=== PATIENT | male | born 1935 | race Caucasian/White ===

== ENCOUNTER 2018-02-16 17:40 | Inpatient (IN) ==
[2018-02-16] MEDS ORDERED: methylPREDNISolone SOD SUCC 125 MG/2 ML VIAL IV ONE (17:49)
[2018-02-16] MEDS ORDERED: IPRATROPIUM/ALBUTEROL 3 ML AMPUL.NEB NEB ONE (17:52)
--- NOTE | 2018-02-16 18:38 | XRay Report ---
CLINICAL INFORMATION: dyspnea COMPARISON: 12/03/2017 FINDINGS: Heart size, mediastinum and pulmonary vessels are normal. There is minor bibasilar atelectasis or infiltrate. No effusion. IMPRESSION: Minor bibasilar atelectasis or infiltrate. Interpreted and Authenticated by: Medardo Bell 02/16/18
[2018-02-16 18:44] LABS: Basophils # (Auto) 0 K/mcL (0.0-0.3); Basophils % (Auto) 0 % (0.0-2.0); Eosinophils # (Auto) 0.3 K/mcL (0.0-0.7); Eosinophils % (Auto) 2.3 % (0.0-7.0); Granulocytes % (Auto) 79.5 % (38.0-78.0); Lymphocytes # (Auto) 1.7 K/mcL (1.5-4.8); Lymphocytes % (Auto) 12.2 % (15.5-49.0); Mean Corpuscular HGB Conc 33.8 g/dL (31.0-36.0); Mean Corpuscular Hemoglobin 30.1 pg (26.0-34.0); Monocytes # (Auto) 0.8 K/mcL (0.1-0.9); Platelet Count 246 K/mcL (140-440); RBC 5.03 M/mcL (4.50-5.90); Red Cell Distribution Width 13.4 % (11.5-14.5)
[2018-02-16] MEDS ORDERED: 0.9 % SODIUM CHLORIDE 1,000 ML IV ONE (18:49)
[2018-02-16] MEDS ORDERED: LEVOFLOXACIN 500 MG/100 ML BAG IV ONE (18:51)
--- NOTE | 2018-02-16 18:54 | Emergency Department Note ---
SOB HPI - General Chief Complaint: Shortness of Breath/Dyspnea Stated Complaint: SOB Time Seen by Provider: 02/16/18 18:25 Source: patient Mode of arrival: ambulatory Limitations: no limitations - History of Present Illness 82-year-old male presents with shortness of breath. States it started a few weeks ago but much worse over the last few days. No unknown fever, positive chills last few days. No nausea, vomiting, or diarrhea. He became much more short of breath tonight and arrived with oxygen saturations in the 70s on room air. He does not use any home oxygen at home but does have a history of COPD. He has had a cough for the last few days. Nonproductive. Increased shortness of breath with any exertion. No sore throat or ear pain. No other cold symptoms. No pedal edema. Associated symptoms: Denies: chest pain, pain with inspiration - Related Data Home Medications Medication Instructions Recorded Confirmed Nitroglycerin [Nitrostat] 0.4 mg SL Q5M PRN 12/03/17 12/03/17 Allergies Allergy/AdvReac Type Severity Reaction Status Date / Time No Known Drug Allergies Allergy Verified 02/16/18 17:43 Review of Systems All systems ED: reviewed and negative except as stated. Past Medical History - Past Medical History Medical history: Reports: COPD, coronary artery disease (History of cardiac stent), DM, hypertension, other (aaa) Surgical history ED: Reports: angioplasty/stent, appendectomy, orthopedic, other (neck), other (turp, cardiac stents, neck sx) - Social History smoking status: Former smoker (quit in 2001) Alcohol use: Reports: None (quit 2001) Drug use: Reports: none Physical Exam Limitations: no limitations General appearance: alert, in no apparent distress Head: atraumatic, normocephalic, normal inspection Eye: Present: normal appearance. Absent: conjunctival injection ENT: normal exam, normal oropharynx, mucous membranes moist, TM's normal bilaterally, normal external ear exam Neck: Present: normal inspection, trachea midline. Absent: tenderness, lymphadenopathy Chest: Present: symmetric chest wall rise Respiratory: Present: respiratory distress (Tachypnea and labored breathing on arrival with oxygen saturations in the 70s on room air), wheezes (Expiratory wheezes to bases bilaterally and diminished lung sounds throughout on arrival), accessory muscle use (Moderate accessory muscle use on arrival). Absent: stridor Cardiovascular: Present: regular rate, normal heart sounds Extremities: Present: normal inspection, normal capillary refill. Absent: pedal edema Neurological: Present: alert, oriented X3 Psychiatric: Present: normal affect, normal mood Skin: Present: warm, dry, intact, normal color. Absent: rash, cyanosis, diaphoresis, erythema Course Course Narrative: @2014 Dr. Mak, hospitalist accepted pt. Vital Signs Temperature 98.0 F 02/16/18 17:41 Temperature 100.7 F H 02/16/18 18:48 Pulse Rate 105 H 02/16/18 19:48 Respiratory Rate 19 02/16/18 19:48 Blood Pressure 122/75 02/16/18 19:46 Pulse Oximetry (%) 95 02/16/18 19:48 Shortness of Breath/Dyspnea - Lab Data Lab results reviewed: Yes I reviewed the patient's lab results. Result diagrams: 02/16/18 18:04 02/16/18 18:04 Lab Results 02/16/18 02/16/18 02/16/18 Range/Units 18:04 18:04 18:04 WBC 13.9 H (4.5-11.0) K/mcL RBC 5.03 (4.50-5.90) M/mcL Hgb 15.1 (13.5-16.5) g/dL Hct 44.8 (41.0-55.0) % MCV 89.0 (80.0-100.0) fL MCH 30.1 (26.0-34.0) pg MCHC 33.8 (31.0-36.0) g/dL RDW 13.4 (11.5-14.5) % Plt Count 246 (140-440) K/mcL MPV 7.4 (7.4-10.4) fL Gran % 79.5 H (38.0-78.0) % Lymph % (Auto) 12.2 L (15.5-49.0) % [place] % (Auto) 6.0 (1.0-12.0) % Eos % (Auto) 2.3 (0.0-7.0) % Baso % (Auto) 0 (0.0-2.0) % Gran # 11.1 H (1.8-8.0) K/mcL Lymph # (Auto) 1.7 (1.5-4.8) K/mcL [place] # (Auto) 0.8 (0.1-0.9) K/mcL Eos # (Auto) 0.3 (0.0-0.7) K/mcL Baso # (Auto) 0 (0.0-0.3) K/mcL VBG Lactic Acid 2.8 H (0.5-2.0) mmol/L Sodium 132 L (133-145) mmol/L Potassium 4.1 (3.3-5.1) mmol/L Chloride 93 L (96-108) mmol/L Carbon Dioxide 22 (22-30) mmol/L Anion Gap 17.0 H (8-16) BUN 19 (8-23) mg/dl Creatinine 1.0 (0.7-1.2) mg/dl GFR Calculation 71 Glucose 234 H (70-105) mg/dL Calcium 9.6 (8.6-10.4) mg/dl Total Bilirubin 0.2 (0.0-1.0) mg/dL AST 21 (0-37) U/l ALT 19 (0-40) U/l Alkaline Phosphatase 98 (39-117) U/L Troponin T (0-0.03) ng/ml NT-Pro-B Natriuret Pep 108.2 (0-450) pg/ml Total Protein 7.4 (5.9-8.4) gm/dL Albumin 4.3 (3.2-5.2) gm/dL Globulin 3.1 (2.2-3.7) gm/dL Albumin/Globulin Ratio 1.4 (1.0-2.3) 02/16/18 Range/Units 18:04 WBC (4.5-11.0) K/mcL RBC (4.50-5.90) M/mcL Hgb (13.5-16.5) g/dL Hct (41.0-55.0) % MCV (80.0-100.0) fL MCH (26.0-34.0) pg MCHC (31.0-36.0) g/dL RDW (11.5-14.5) % Plt Count (140-440) K/mcL MPV (7.4-10.4) fL Gran % (38.0-78.0) % Lymph % (Auto) (15.5-49.0) % [place] % (Auto) (1.0-12.0) % Eos % (Auto) (0.0-7.0) % Baso % (Auto) (0.0-2.0) % Gran # (1.8-8.0) K/mcL Lymph # (Auto) (1.5-4.8) K/mcL [place] # (Auto) (0.1-0.9) K/mcL Eos # (Auto) (0.0-0.7) K/mcL Baso # (Auto) (0.0-0.3) K/mcL VBG Lactic Acid (0.5-2.0) mmol/L Sodium (133-145) mmol/L Potassium (3.3-5.1) mmol/L Chloride (96-108) mmol/L Carbon Dioxide (22-30) mmol/L Anion Gap (8-16) BUN (8-23) mg/dl Creatinine (0.7-1.2) mg/dl GFR Calculation Glucose (70-105) mg/dL Calcium (8.6-10.4) mg/dl Total Bilirubin (0.0-1.0) mg/dL AST (0-37) U/l ALT (0-40) U/l Alkaline Phosphatase (39-117) U/L Troponin T < 0.01 (0-0.03) ng/ml NT-Pro-B Natriuret Pep (0-450) pg/ml Total Protein (5.9-8.4) gm/dL Albumin (3.2-5.2) gm/dL Globulin (2.2-3.7) gm/dL Albumin/Globulin Ratio (1.0-2.3) - Radiology Data Radiology results reviewed: Yes I reviewed the patient's radiology results. Disposition Pt seen by ROUNDING MACHINE OPERATOR/PA only: No Clinical Impression: Pneumonia, Hypoxia, SOB (shortness of breath) Disposition: Xfer As Inpt ([facility]) Condition: Fair Referrals: Garry Villaseñor MD [Primary Care Provider] -
[2018-02-16 19:13] LABS: ALT/SGPT 19 U/l (0-40); Albumin 4.3 gm/dL (3.2-5.2); Albumin/Globulin Ratio 1.4 (1.0-2.3); Alkaline Phosphatase 98 U/L (39-117); Blood Urea Nitrogen 19 mg/dl (8-23); proBNP 108.2 pg/ml (0-450)
--- NOTE | 2018-02-16 20:50 | Internal Med History&Physical ---
Medical - H&P: [facility] Patient information: Note initiated : 02/16/18 at 8:45 pm Service Date, if different from initiated Date: [] Patient: Massimo Medina a 82 y/o M admitted on for Shortness of breath. Chief Complaint: [] History of present illness: Mr. Medina is a 82 year old M who presents with shortness of breath times 1 day. Patient states that her cough for a month productive of occasionally white sputum he was given an antibiotic early in the month which did not help. When he arrived on room air his sats were in the 70s. He states yesterday he noticed more shortness of breath. Typically becomes easily short of breath with any exertion but yesterday seem to be worse. Today while he is on the couch and noticed acute worsening and then some vitamin of the ED. He does not have any home oxygen to use inhalers for his COPD. He states that that his primary care doctor set up for him to get oxygen about 3 years ago but due to financial reasons he was not able to require home oxygen for the patient. He was given steroids and a breathing treatment after the breathing treatments as there is some improvement, is currently on oxygen mask 4 L. He denies any fevers. Denies any wheezing. Denies any chest pain. He did have the flu shot. Has not been around anybody has been sick currently smoke. No calf tenderness. In the ER he was felt to have exacerbation of COPD as well as a pneumonia developing showing on chest x-ray mild bibasilar infiltrates. Lactate was elevated as well as white blood cell count. ABG with CO2 within normal limits Review of Systems: Shortness of breath cough occasionally productive. denies headache/fever/chills/ nausea/vomiting/chest or abdominal pain/diarrhea. Remaining 10 point review of systems reviewed and negative Medical - H&P: PMH Medical history: Past medical history: Diabetes COPD not on home oxygen but was evaluated for the past states he did not get it because of financial issues History of CAD with a stent 2001 History of AAA Hypertension Past surgical history: TURP Appendectomy Neck surgery Family history: Mother is healthy Father with COPD Social history: Patient quit smoking 2001 denies alcohol use and was with a cane lives by himself Medical - H&P: Meds Home Medications Medication Instructions Recorded Confirmed Type Nitroglycerin [Nitrostat] 0.4 mg SL Q5M PRN 12/03/17 12/03/17 History Aspirin [Adult Aspirin Regimen] 81 mg PO DAILY 02/16/18 02/16/18 History Budesonide/Formoterol Fumarate IH DAILY 02/16/18 History [Symbicort 160-4.5 Mcg Inhaler] Cyanocobalamin (Vitamin B-12) 1 tab PO DAILY 02/16/18 02/16/18 History [Vitamin B-12] Finasteride [Proscar] 5 mg PO DAILY 02/16/18 02/16/18 History Lisinopril [Zestril] 25 mg PO DAILY 02/16/18 02/16/18 History Magnesium Oxide [Mag-Oxide 400 mg PO DAILY 02/16/18 02/16/18 History Magnesium] Montelukast [Singular] 10 mg PO HS 02/16/18 02/16/18 History Multivit-Min/Folic/Vit K/Lycop 1 tab PO DAILY 02/16/18 02/16/18 History [Men's Multivitamin Caplet] Niacin [Niacor] 500 mg PO DAILY 02/16/18 02/16/18 History [place]-3 Fatty Acids/Fish Oil [Fish 1,200 mg PO DAILY 02/16/18 02/16/18 History Oil 1,200 mg Softgel] Tiotropium [place] [Spiriva] 18 mcg IH DAILY 02/16/18 02/16/18 History metFORMIN [Glucophage] 1,000 mg PO BIDCC 02/16/18 02/16/18 History Allergies Allergy/AdvReac Type Severity Reaction Status Date / Time No Known Drug Allergies Allergy Verified 02/16/18 17:43 Medical - H&P: Exam - Constitutional Vitals: Temp Pulse Resp BP Pulse Ox 100.7 F H 105 H 38 H 125/102 94 02/16/18 18:48 02/16/18 20:31 02/16/18 20:31 02/16/18 20:31 02/16/18 20:31 Exam: General: Alert, Awake, No acute Distress Eyes/N/T: EOMI, pupils equal round reactive light, dry mucous membranes Head/Neck: neck supple, normocephalic atraumatic CV: Tacky but regular, No murmurs, normal s1/s2 Pulm: Extremely tight lungs especially at the bases. No rhonchi Abd: soft, nontender, +BS x4 Ext: no clubbing/cyanosis/edema Neuro: Alert, no focal deficits, moves all extremities Skin: warm/dry Medical - H&P: Reslt - Labs CBC & Chem 7: 02/16/18 18:04 02/16/18 18:04 Labs: Short CBC 02/16/18 Range/Units 18:04 WBC 13.9 H (4.5-11.0) K/mcL Hgb 15.1 (13.5-16.5) g/dL Hct 44.8 (41.0-55.0) % Plt Count 246 (140-440) K/mcL BMP 02/16/18 18:04 Sodium 132 L Potassium 4.1 Chloride 93 L Carbon Dioxide 22 BUN 19 Creatinine 1.0 Glucose 234 H Calcium 9.6 Cardiac Enzymes 02/16/18 Range/Units 18:04 Troponin T < 0.01 (0-0.03) ng/ml Liver Function 02/16/18 Range/Units 18:04 Total Bilirubin 0.2 (0.0-1.0) mg/dL AST 21 (0-37) U/l ALT 19 (0-40) U/l Alkaline Phosphatase 98 (39-117) U/L Albumin 4.3 (3.2-5.2) gm/dL - Impressions Chest x-ray with mild bibasilar infiltrate ABG with pH 7.42 CO2 37 oxygen 81 Take 2.8 Medical - H&P: A/P - Narrative A/P Narrative: A: *AECOPD: *PNA: *Acute hypoxic respiratory failure: *Sepsis: Secondary to above *Diabetes with hyperglycemia: *CAD with stent: *HTN: * * P: -Steroids, Nebs/IS/Acapella -Abx, pending SC/BC -trend PCT and resp panel -IVF's -f/u lactate -SSI, check a1c -O2 supp - -ppx: lovenox
[2018-02-16] MEDS ORDERED: ACETAMINOPHEN 325 MG TABLET PO PRN (20:54)
[2018-02-16] MEDS ORDERED: 0.9 % SODIUM CHLORIDE 1,000 ML IV SCH (20:54)
[2018-02-16] MEDS ORDERED: cefTRIAXone 1 GM in DEXTROSE 5% IN WATER 50 ML IV SCH (20:54)
[2018-02-16] MEDS ORDERED: ONDANSETRON 4 MG/2 ML VIAL IV PRN (20:54)
[2018-02-16] MEDS ORDERED: DEXTROSE 50% 50 ML VIAL IV PRN (20:54)
[2018-02-16] MEDS ORDERED: IPRATROPIUM/ALBUTEROL 3 ML AMPUL.NEB NEB PRN (20:54)
[2018-02-16] MEDS ORDERED: DEXTROSE 31 GM ORAL.SUSP PO PRN (20:54)
[2018-02-16] MEDS ORDERED: AZITHROMYCIN 500 MG in DEXTROSE 5% IN WATER 250 ML IV SCH (21:00)
[2018-02-16 21:56] LABS: Hemoglobin A1C 7.6 % HGB (4.0-6.0)
[2018-02-16] MEDS ORDERED: ACETAMINOPHEN W/CODEINE #3 1 TABLET PO ONE (22:04)
[2018-02-16] MEDS ORDERED: traMADol 50 MG TABLET PO PRN (22:04)
[2018-02-16] MEDS: cefTRIAXone 1 GM VIAL IV SCH (22:28)
[2018-02-16] MEDS: 0.9 % SODIUM CHLORIDE 1,000 ML IV SCH (22:28)
[2018-02-16] MEDS: methylPREDNISolone SOD SUCC 125 MG/2 ML VIAL IV SCH (22:28)
[2018-02-16] MEDS: FAMOTIDINE 20 MG TABLET PO SCH (22:29)
[2018-02-16] MEDS: INSULIN LISPRO 1 UNIT/0.01 ML UNIT SQ SCH (22:29)
[2018-02-16] MEDS: MONTELUKAST 10 MG TABLET PO SCH (22:29)
[2018-02-16] MEDS ORDERED: IOPAMIDOL 100 ML BOTTLE IV ONE (22:34)
[2018-02-16] MEDS: IPRATROPIUM/ALBUTEROL 3 ML AMPUL.NEB NEB SCH (22:46)
[2018-02-16] MEDS: 0.9 % SODIUM CHLORIDE 10 ML SYRINGE IV SCH (22:55)
--- NOTE | 2018-02-17 00:01 | Emergency Department Note ---
ED Note Addendum Note Addendum: I reviewed this case of Karen Corral MECCA. Agree with her evaluation management documentation. I reviewed his x-ray as well. I recommended admission and helped coordinate that
[2018-02-17] MEDS: IPRATROPIUM/ALBUTEROL 3 ML AMPUL.NEB NEB SCH ×6 (03:22→22:49)
--- NOTE | 2018-02-17 06:08 | Cat Scan Report ---
CLINICAL INFORMATION: Elevated d-dimer and shortness of breath COMPARISON: Chest CT 06/05/2014 TECHNIQUE: 80 cc of Isovue-300 were injected intravenously. Using SmartPrep to maximize pulmonary artery opacification, 2.5 mm helical slices were obtained from the lung apices through the lung bases. Following reconstruction, 2.5 mm sagittal, coronal, and axial reformations were processed. The exam was reviewed at mediastinal, lung, and bone windows. The exam was performed using radiation dose optimization techniques including, but not limited to, automated exposure control, adjustment of the mA and/or kV according to patient size and use of iterative reconstruction technique. FINDINGS: Central pulmonary arteries are mildly enlarged: the main pulmonary diameter is 3.4 cm suggestive of pulmonary hypertension related to COPD. No evidence of pulmonary embolus. Thoracic aorta is normal in contour and caliber with scattered chronic atherosclerotic plaque. There are no abnormally enlarged lymph nodes in the mediastinal, hilar or axillary region. Small hiatal hernia is noted. Thyroid is diminutive, but unchanged. The heart is mildly enlarged with low attenuation in the interventricular septum - new since previous study. This could indicate an infarct. CABG changes noted. Very heavy fibrofatty calcific plaque noted in the coronary arteries. Pulmonary parenchymal windows show moderate subsegmental consolidated atelectasis or infiltrate in the posterior left lower lobe with a smaller, yet similar, region in the posterior right lower lobe. Moderate centrilobular emphysema feature elevated lung volumes, chronic bronchitis and scattered bullae in the upper lobes seen - as before. There are no effusions. Bone windows show no osseous abnormalities. IMPRESSION: 1. No evidence of pulmonary embolus 2. Mild enlargement of the central pulmonary arteries suggestive, but not diagnostic, of pulmonary hypertension due to centrilobular emphysema. 3. Moderate subsegmental consolidated atelectasis or, less likely, infiltrate in the posterior left lower lobe with a smaller region in the the posterior right lower lobe. 4. Low attenuation of the interventricular septum, suggestive, but not diagnostic, of an infarct. This is new from the previous study. Please correlate with EKG and other clinical history. CABG changes noted. 5. Diminutive thyroid. Please correlate with TSH and T4 Interpreted and Authenticated by: Medardo Bell 02/17/18
[2018-02-17] MEDS: 0.9 % SODIUM CHLORIDE 10 ML SYRINGE IV SCH ×3 (06:39→21:42)
[2018-02-17 07:08] LABS: Basophils # (Auto) 0 K/mcL (0.0-0.3); Basophils % (Auto) 0 % (0.0-2.0); Eosinophils # (Auto) 0 K/mcL (0.0-0.7); Eosinophils % (Auto) 0 % (0.0-7.0); Granulocytes % (Auto) 95.6 % (38.0-78.0); Lymphocytes # (Auto) 0.6 K/mcL (1.5-4.8); Lymphocytes % (Auto) 3.4 % (15.5-49.0); Mean Cell Volume 89.9 fL (80.0-100.0); Mean Corpuscular HGB Conc 33.7 g/dL (31.0-36.0); Mean Corpuscular Hemoglobin 30.3 pg (26.0-34.0); Monocytes # (Auto) 0.2 K/mcL (0.1-0.9); Platelet Count 200 K/mcL (140-440); Red Cell Distribution Width 13.4 % (11.5-14.5)
[2018-02-17] MEDS: methylPREDNISolone SOD SUCC 125 MG/2 ML VIAL IV SCH ×3 (07:09→21:42)
[2018-02-17] MEDS: 0.9 % SODIUM CHLORIDE 1,000 ML IV SCH ×3 (07:10→18:05)
[2018-02-17] MEDS: INSULIN LISPRO 1 UNIT/0.01 ML UNIT SQ SCH ×4 (07:15→20:45)
--- NOTE | 2018-02-17 07:16 | Internal Med Progress Note ---
Medical - PN: Subj Patient information: Note initiated : 02/17/18 at 7:10 am Service Date, if different from initiated Date: [] Patient: Massimo Medina a 82 y/o M admitted on 02/16/18 for Shortness of breath. Chief Complaint: [] Interval history: Mr. Medina is a 82 year old M who presents with shortness of breath times 1 day. Patient states that her cough for a month productive of occasionally white sputum he was given an antibiotic early in the month which did not help. When he arrived on room air his sats were in the 70s. He states yesterday he noticed more shortness of breath. Typically becomes easily short of breath with any exertion but yesterday seem to be worse. Today while he is on the couch and noticed acute worsening and then some vitamin of the ED. He does not have any home oxygen to use inhalers for his COPD. He states that that his primary care doctor set up for him to get oxygen about 3 years ago but due to financial reasons he was not able to require home oxygen for the patient. He was given steroids and a breathing treatment after the breathing treatments as there is some improvement, is currently on oxygen mask 4 L. He denies any fevers. Denies any wheezing. Denies any chest pain. He did have the flu shot. Has not been around anybody has been sick currently smoke. No calf tenderness. In the ER he was felt to have exacerbation of COPD as well as a pneumonia developing showing on chest x-ray mild bibasilar infiltrates. Lactate was elevated as well as white blood cell count. ABG with CO2 within normal limits 02/17 Feeling better this morning has a persistent dry cough now. Feels like he can expand his lungs more. Breathing is improved. Review of Systems: denies headache/fever/chills/nausea/vomiting/chest or abdominal pain/diarrhea. Otherwise see above. - Constitutional Vitals: Vital Signs Temp Pulse Resp BP Pulse Ox 97.7 F 87 16 153/80 91 02/17/18 03:24 02/17/18 06:55 02/17/18 06:55 02/17/18 03:24 02/17/18 06:55 Period Temp Pulse Resp BP Sys/Cooley Pulse Ox Last 24 Hr 97.7 F-100.7 F 86-114 16-38 109-162/70-116 89-98 Intake and Output 02/16/18 02/17/18 02/17/18 21:59 05:59 13:59 Intake Total 1100 / 1100 490 / 490 Output Total 400 / 400 1550 / 1550 Balance 700 / 700 -1060 / -1060 Weight 86.409 kg Intake & Output: Intake & Output 02/16/18 02/17/18 02/17/18 21:59 05:59 13:59 Intake Total 1100 / 1100 490 / 490 Output Total 400 / 400 1550 / 1550 Balance 700 / 700 -1060 / -1060 Weight 86.409 kg Intake: IV 1100 / 1100 250 / 250 Sodium Chloride 0.9% 1,000 ml @ 1000 / 1000 Wide Open IV BOLUS ONE Rx#: [id number] Oral 240 / 240 Output: Void Amount 400 / 400 1550 / 1550 Other: Urine Appearance Clear Clear Urine Color Straw Straw Urine Odor Normal # Voids 1 Exam: General: Alert, Awake, No acute Distress Eyes/N/T: EOMI, Head/Neck: neck supple, CV: RRR,normal s1/s2 Pulm: Much better expansion today. Few scattered wheezes. A few subtle rales in the bases more on the left Abd: soft, nontender, +BS x4 Ext: no clubbing/cyanosis/edema Neuro: Alert, no focal deficits, moves all extremities Skin: warm/dry Medical - PN: Obj Da - Labs CBC & Chem 7: 02/17/18 04:00 02/17/18 04:00 Labs: Abnormal Lab Results 02/17/18 02/16/18 02/16/18 04:00 20:42 18:04 WBC 16.9 H Hct 40.4 L Gran % 95.6 H Lymph % (Auto) 3.4 L Gran # 16.1 H Lymph # (Auto) 0.6 L D-Dimer 4.07 H VBG Lactic Acid Sodium Chloride Anion Gap Glucose Hemoglobin A1c 7.6 H 02/16/18 02/16/18 02/16/18 18:04 18:04 18:04 WBC 13.9 H Hct Gran % 79.5 H Lymph % (Auto) 12.2 L Gran # 11.1 H Lymph # (Auto) D-Dimer VBG Lactic Acid 2.8 H Sodium 132 L Chloride 93 L Anion Gap 17.0 H Glucose 234 H Hemoglobin A1c Meds: Medications Acetaminophen (Tylenol) 650 mg PO Q6HP PRN PRN Reason: PAIN/FEVER > 101 Albuterol/Ipratropium (Duoneb) 3 ml NEB Q4HRT [facility] Last Admin: 02/17/18 06:44 Dose: 3 ml Albuterol/Ipratropium (Duoneb) 3 ml NEB Q6HP PRN PRN Reason: Bronchospasm Aspirin (Aspirin) 81 mg PO DAILY [facility] Ceftriaxone Sodium (Rocephin) 1 gm IV Q24H [facility] Last Admin: 02/16/18 22:28 Dose: 1 gm Dextrose (Dextrose 50%) 0 ml IV UD PRN PRN Reason: Hypoglycemia Diagnostic Test (Pha) (Accu-Chek) 1 each FS ACHS [facility] Last Admin: 02/16/18 22:29 Dose: 1 each Enoxaparin Sodium (Lovenox) 40 mg SQ DAILY [facility] Famotidine (Pepcid) 20 mg PO BID [facility] Last Admin: 02/16/18 22:29 Dose: 20 mg Glucose (Insta-Glucose) 15 gm PO PRN PRN PRN Reason: Hypoglycemia Sodium Chloride (Sodium Chloride 0.9%) 1,000 mls @ 0 mls/hr IV .Q0M [facility] Sodium Chloride (Sodium Chloride 0.9%) 1,000 mls @ 100 mls/hr IV .Q10H [facility] Last Admin: 02/16/18 22:28 Dose: 100 mls/hr Insulin Human Lispro (Humalog) 0 unit SQ ACHS [facility]; Protocol Last Admin: 02/16/18 22:29 Dose: 10 unit Lisinopril (Zestril) 25 mg PO DAILY [facility] Magnesium Oxide (Magnesium Oxide) 400 mg PO DAILY [facility] Methylprednisolone Sodium Succinate (Solu-Medrol) 80 mg IV Q8 [facility] Last Admin: 02/16/18 22:28 Dose: 80 mg Montelukast Sodium (Singular) 10 mg PO HS [facility] Last Admin: 02/16/18 22:29 Dose: 10 mg Non-Formulary Medication (Budesonide/Formoterol Fumarate [Symbicort 160-4.5 Mcg Inhaler]) 0 appful IH DAILY [facility] Ondansetron HCl (Zofran) 4 mg IV Q4HP PRN PRN Reason: Nausea And Vomiting Sodium Chloride (Saline Flush) 10 ml IV Q8 [facility] Last Admin: 02/17/18 06:39 Dose: Not Given Tramadol HCl (Ultram) 50 mg PO Q6HP PRN PRN Reason: Pain Last Admin: 02/17/18 03:22 Dose: 50 mg Medical - PN: A/P - Time Spent With Patient Total time spent is greater than 50% in coordination of care (as documented) at patient's floor/unit and/or counseling patient: - Narrative A/P Narrative: A: *AECOPD: improving -no PE *PNA, LLL: *Acute hypoxic respiratory failure: *Sepsis: Secondary to above *Diabetes with hyperglycemia: A1c 7.6 *CAD with stent: *HTN: *Hyponatremia: * P: -Steroids(wean), Nebs/IS/Acapella -empiric Abx, pending SC/BC -resp panel -IVF's -SSI, -O2 supp - -ppx: lovenox Medical - PN: Qual - VTE Deep Vein Thrombosis/Pulmonary Embolism Present on Admission: No
[2018-02-17 07:47] LABS: ALT/SGPT 15 U/l (0-40); Albumin 3.8 gm/dL (3.2-5.2); Albumin/Globulin Ratio 1.4 (1.0-2.3); Alkaline Phosphatase 68 U/L (39-117); Bilirubin,Direct < 0.2 mg/dL (0.0-0.3); Blood Urea Nitrogen 16 mg/dl (8-23); Gamma Glutamyl Transpeptidase 16 U/L (8-61); Uric Acid 3.7 mg/dL (2.5-8.0)
[2018-02-17] MEDS: cefTRIAXone 1 GM VIAL IV SCH (08:26)
[2018-02-17] MEDS: LISINOPRIL 10 MG TABLET PO SCH (08:34)
[2018-02-17] MEDS: ENOXAPARIN 40 MG/0.4 ML SYRINGE SQ SCH (08:34)
[2018-02-17] MEDS: ASPIRIN 81 MG TAB.CHEW PO SCH (08:35)
[2018-02-17] MEDS: FAMOTIDINE 20 MG TABLET PO SCH ×2 (08:35→20:44)
[2018-02-17] MEDS: MAGNESIUM OXIDE 400 MG TABLET PO SCH (08:36)
[2018-02-17] MEDS: Budesonide/Formoterol Fumarate [Symbicort] 160-4.5 mcg Inhaler INH SCH ×2 (11:07→20:46)
[2018-02-17] MEDS: NEUTRA PHOS 1 PACKET PO SCH ×2 (14:16→20:44)
[2018-02-17] MEDS: MONTELUKAST 10 MG TABLET PO SCH (20:44)
[2018-02-18] MEDS: IPRATROPIUM/ALBUTEROL 3 ML AMPUL.NEB NEB SCH ×2 (04:05→06:34)
[2018-02-18] MEDS: methylPREDNISolone SOD SUCC 125 MG/2 ML VIAL IV SCH (05:51)
[2018-02-18] MEDS: 0.9 % SODIUM CHLORIDE 10 ML SYRINGE IV SCH ×2 (05:52→14:23)
[2018-02-18 06:59] LABS: Basophils # (Auto) 0 K/mcL (0.0-0.3); Basophils % (Auto) 0 % (0.0-2.0); Eosinophils # (Auto) 0 K/mcL (0.0-0.7); Eosinophils % (Auto) 0 % (0.0-7.0); Granulocytes % (Auto) 94.6 % (38.0-78.0); Lymphocytes # (Auto) 0.6 K/mcL (1.5-4.8); Lymphocytes % (Auto) 3.5 % (15.5-49.0); Mean Cell Volume 90.8 fL (80.0-100.0); Mean Corpuscular HGB Conc 33.5 g/dL (31.0-36.0); Mean Corpuscular Hemoglobin 30.4 pg (26.0-34.0); Monocytes # (Auto) 0.3 K/mcL (0.1-0.9); Monocytes % (Auto) 1.9 % (1.0-12.0); Platelet Count 206 K/mcL (140-440); RBC 4.19 M/mcL (4.50-5.90); Red Cell Distribution Width 13.7 % (11.5-14.5)
--- NOTE | 2018-02-18 07:05 | Internal Med Progress Note ---
Medical - PN: Subj Patient information: Note initiated : 02/18/18 at 7:03 am Service Date, if different from initiated Date: [] Patient: Massimo Medina a 82 y/o M admitted on 02/16/18 for Shortness of breath. Chief Complaint: [] Interval history: Mr. Medina is a 82 year old M who presents with shortness of breath times 1 day. Patient states that her cough for a month productive of occasionally white sputum he was given an antibiotic early in the month which did not help. When he arrived on room air his sats were in the 70s. He states yesterday he noticed more shortness of breath. Typically becomes easily short of breath with any exertion but yesterday seem to be worse. Today while he is on the couch and noticed acute worsening and then some vitamin of the ED. He does not have any home oxygen to use inhalers for his COPD. He states that that his primary care doctor set up for him to get oxygen about 3 years ago but due to financial reasons he was not able to require home oxygen for the patient. He was given steroids and a breathing treatment after the breathing treatments as there is some improvement, is currently on oxygen mask 4 L. He denies any fevers. Denies any wheezing. Denies any chest pain. He did have the flu shot. Has not been around anybody has been sick currently smoke. No calf tenderness. In the ER he was felt to have exacerbation of COPD as well as a pneumonia developing showing on chest x-ray mild bibasilar infiltrates. Lactate was elevated as well as white blood cell count. ABG with CO2 within normal limits 02/17 Feeling better this morning has a persistent dry cough now. Feels like he can expand his lungs more. Breathing is improved. 02/18 Patient feeling better breathing a lot better has a very mild cough feels like he is back to baseline. His blood glucoses quite high because we did not have his home medications accurate. He takes Lantus 40 units daily. We will give him his Lantus as well as sliding scale and obtain better control his blood glucose and then likely discharge later today. Review of Systems: denies headache/fever/chills/nausea/vomiting/chest or abdominal pain/diarrhea. Otherwise see above. - Constitutional Vitals: Vital Signs Temp Pulse Resp BP Pulse Ox 98.0 F 90 18 110/73 96 02/18/18 04:00 02/18/18 06:43 02/18/18 06:43 02/18/18 04:00 02/18/18 06:43 Period Temp Pulse Resp BP Sys/Cooley Pulse Ox Last 24 Hr 98.0 F-99.9 F 90-107 16-22 100-122/61-75 91-96 Intake and Output 02/17/18 02/18/18 02/18/18 21:59 05:59 13:59 Intake Total 2640 / 2640 500 / 500 Output Total 700 / 700 700 / 700 Balance 1940 / 1940 -200 / -200 Weight 87.997 kg Intake & Output: Intake & Output 02/17/18 02/18/18 02/18/18 21:59 05:59 13:59 Intake Total 2640 / 2640 500 / 500 Output Total 700 / 700 700 / 700 Balance 1940 / 1940 -200 / -200 Weight 87.997 kg Intake: IV 1000 / 1000 Sodium Chloride 0.9% 1,000 ml @ 1000 / 1000 100 mls/hr IV .Q10H [facility] Rx#: [id number] Oral 1640 / 1640 500 / 500 Output: Void Amount 700 / 700 700 / 700 Other: Meal Dinner Percent of Meal Consumed 100% Feeding Ability Independent Exam: General: Alert, Awake, No acute Distress Eyes/N/T: EOMI, Head/Neck: neck supple, CV: RRR,normal s1/s2 Pulm: Much improved lung sounds. Good aeration no wheezing. Abd: soft, nontender, +BS x4 Ext: no clubbing/cyanosis/edema Neuro: Alert, no focal deficits, moves all extremities Skin: warm/dry Medical - PN: Obj Da - Labs CBC & Chem 7: 02/18/18 03:45 02/18/18 03:45 Labs: Abnormal Lab Results 02/18/18 02/17/18 02/17/18 03:45 04:00 04:00 WBC 16.1 H 16.9 H RBC 4.19 L Hgb 12.8 L Hct 38.1 L 40.4 L Gran % 94.6 H 95.6 H Lymph % (Auto) 3.5 L 3.4 L Gran # 15.3 H 16.1 H Lymph # (Auto) 0.6 L 0.6 L D-Dimer VBG Lactic Acid Sodium Chloride 94 L Carbon Dioxide 21 L Anion Gap 18.0 H Glucose 322 H Hemoglobin A1c Phosphorus 2.0 L 02/16/18 02/16/18 02/16/18 20:42 18:04 18:04 WBC RBC Hgb Hct Gran % Lymph % (Auto) Gran # Lymph # (Auto) D-Dimer 4.07 H VBG Lactic Acid 2.8 H Sodium Chloride Carbon Dioxide Anion Gap Glucose Hemoglobin A1c 7.6 H Phosphorus 02/16/18 02/16/18 18:04 18:04 WBC 13.9 H RBC Hgb Hct Gran % 79.5 H Lymph % (Auto) 12.2 L Gran # 11.1 H Lymph # (Auto) D-Dimer VBG Lactic Acid Sodium 132 L Chloride 93 L Carbon Dioxide Anion Gap 17.0 H Glucose 234 H Hemoglobin A1c Phosphorus Meds: Medications Acetaminophen (Tylenol) 650 mg PO Q6HP PRN PRN Reason: PAIN/FEVER > 101 Albuterol/Ipratropium (Duoneb) 3 ml NEB Q4HRT [facility] Last Admin: 02/18/18 06:34 Dose: 3 ml Albuterol/Ipratropium (Duoneb) 3 ml NEB Q6HP PRN PRN Reason: Bronchospasm Aspirin (Aspirin) 81 mg PO DAILY [facility] Last Admin: 02/17/18 08:35 Dose: 81 mg Ceftriaxone Sodium (Rocephin) 1 gm IV Q24H [facility] Last Admin: 02/17/18 08:26 Dose: 1 gm Dextrose (Dextrose 50%) 0 ml IV UD PRN PRN Reason: Hypoglycemia Diagnostic Test (Pha) (Accu-Chek) 1 each FS [facility] Last Admin: 02/17/18 20:44 Dose: 1 each Enoxaparin Sodium (Lovenox) 40 mg SQ DAILY [facility] Last Admin: 02/17/18 08:34 Dose: 40 mg Famotidine (Pepcid) 20 mg PO BID [facility] Last Admin: 02/17/18 20:44 Dose: 20 mg Glucose (Insta-Glucose) 15 gm PO PRN PRN PRN Reason: Hypoglycemia Insulin Human Lispro (Humalog) 0 unit SQ [facility]; Protocol Last Admin: 02/17/18 20:45 Dose: 10 unit Lisinopril (Zestril) 25 mg PO DAILY [facility] Last Admin: 02/17/18 08:34 Dose: 25 mg Magnesium Oxide (Magnesium Oxide) 400 mg PO DAILY [facility] Last Admin: 02/17/18 08:36 Dose: 400 mg Methylprednisolone Sodium Succinate (Solu-Medrol) 40 mg IV Q8 [facility] Last Admin: 02/18/18 05:51 Dose: 40 mg Montelukast Sodium (Singular) 10 mg PO HS [facility] Last Admin: 02/17/18 20:44 Dose: 10 mg Ondansetron HCl (Zofran) 4 mg IV Q4HP PRN PRN Reason: Nausea And Vomiting Budesonide/Formoterol Fumarate [Symbicort] 160-4.5 Mcg Inhaler 2 dose INH BID [facility] Last Admin: 02/17/18 20:46 Dose: 2 dose Potassium/Phosphorus/Sodium (Neutra Phos) 1 packet PO TID [facility] Last Admin: 02/17/18 20:44 Dose: 1 packet Sodium Chloride (Saline Flush) 10 ml IV Q8 [facility] Last Admin: 02/18/18 05:52 Dose: 10 ml Tramadol HCl (Ultram) 50 mg PO Q6HP PRN PRN Reason: Pain Last Admin: 02/17/18 03:22 Dose: 50 mg Medical - PN: A/P - Time Spent With Patient Total time spent is greater than 50% in coordination of care (as documented) at patient's floor/unit and/or counseling patient: - Narrative A/P Narrative: A: *AECOPD: improving -no PE -did not quality for home O2 per RT *PNA, LLL: -resp panel neg *Acute hypoxic respiratory failure: *Sepsis: Secondary to above *Diabetes with hyperglycemia: A1c 7.6, glucose elevated as we did not have his home medications accurate, he takes Lantus 40 daily *CAD with stent: *HTN: *Hyponatremia: resolved *steroid induced leukocytosis P: -Steroids(wean), Nebs/IS/Acapella -Abx, - -SSI, home lantus started - -ppx: lovenox d/c planning Medical - PN: Qual - VTE Deep Vein Thrombosis/Pulmonary Embolism Present on Admission: No
[2018-02-18] MEDS: INSULIN LISPRO 1 UNIT/0.01 ML UNIT SQ SCH ×4 (07:20→14:15)
[2018-02-18 07:36] LABS: ALT/SGPT 14 U/l (0-40); Albumin 3.6 gm/dL (3.2-5.2); Albumin/Globulin Ratio 1.4 (1.0-2.3); Alkaline Phosphatase 69 U/L (39-117); Bilirubin,Direct < 0.2 mg/dL (0.0-0.3); Blood Urea Nitrogen 22 mg/dl (8-23); Gamma Glutamyl Transpeptidase 14 U/L (8-61); Uric Acid 4.6 mg/dL (2.5-8.0)
[2018-02-18] MEDS: NEUTRA PHOS 1 PACKET PO SCH ×2 (08:36→14:15)
[2018-02-18] MEDS: ASPIRIN 81 MG TAB.CHEW PO SCH (08:36)
[2018-02-18] MEDS: ENOXAPARIN 40 MG/0.4 ML SYRINGE SQ SCH (08:36)
[2018-02-18] MEDS: LISINOPRIL 10 MG TABLET PO SCH (08:37)
[2018-02-18] MEDS: FAMOTIDINE 20 MG TABLET PO SCH (08:37)
[2018-02-18] MEDS: MAGNESIUM OXIDE 400 MG TABLET PO SCH (08:38)
[2018-02-18] MEDS: cefTRIAXone 1 GM VIAL IV SCH (08:44)
[2018-02-18] MEDS: Budesonide/Formoterol Fumarate [Symbicort] 160-4.5 mcg Inhaler INH SCH (09:00)
[2018-02-18] MEDS ORDERED: INSULIN GLARGINE, HUMAN 1 UNIT/0.01 ML SQ SCH (09:00)
--- NOTE | 2018-02-18 09:32 | Discharge Summary ---
Medical - DS: Prov Patient information: Note initiated : 02/18/18 at 9:27 am Service Date, if different from initiated Date: [] Patient: Massimo Medina 82 y/o M admitted on 02/16/18 for Shortness of breath. Chief Complaint: [] Date of admission: 02/16/18 20:53 Discharge date: 02/18/18 Primary care physician: Garry Villaseñor Consults: 02/16/18 Consult to Physician [CONS] Stat Comment: Consulting Provider: Balaji Mak Reason For Exam: Physician to Consult Medical - DS: Meds - Discharge Medications Prescriptions: Levofloxacin [Levaquin] 750 mg PO DAILY #5 tab predniSONE [Prednisone] 40 mg PO DAILY #1 tab Active and Home Medications: Home Medications Nitroglycerin [Nitrostat] 0.4 mg SL Q5M PRN 12/03/17 [History Confirmed Last Taken Unknown] Aspirin [Adult Aspirin Regimen] 81 mg PO DAILY 02/16/18 [History Confirmed 02/16 Last Taken Unknown] Budesonide/Formoterol Fumarate [Symbicort 160-4.5 Mcg Inhaler] 1 puff IH DAILY 02/16/18 [History Confirmed 02/17/18 Last Taken Unknown] Cyanocobalamin (Vitamin B-12) [Vitamin B-12] 1 tab PO DAILY 02/16/18 [History Confirmed 02/16/18 Last Taken Unknown] Finasteride [Proscar] 5 mg PO DAILY 02/16/18 [History Confirmed 02/16/18 Last Taken Unknown] Lisinopril [Zestril] 25 mg PO DAILY 02/16/18 [History Confirmed 02/16/18 Last Taken Unknown] Magnesium Oxide [Mag-Oxide Magnesium] 400 mg PO DAILY 02/16/18 [History Confirmed 02/16/18 Last Taken Unknown] Montelukast [Singular] 10 mg PO HS 02/16/18 [History Confirmed 02/16/18 Last Taken Unknown] Multivit-Min/Folic/Vit K/Lycop [Men's Multivitamin Caplet] 1 tab PO DAILY [History Confirmed 02/16/18 Last Taken Unknown] Niacin [Niacor] 500 mg PO DAILY 02/16/18 [History Confirmed 02/16/18 Last Taken Unknown] [place]-3 Fatty Acids/Fish Oil [Fish Oil 1,200 mg Softgel] 1,200 mg PO DAILY 02/16 [History Confirmed 02/16/18 Last Taken Unknown] Tiotropium [place] [Spiriva] 18 mcg IH DAILY 02/16/18 [History Confirmed Last Taken Unknown] metFORMIN [Glucophage] 1,000 mg PO BIDCC 02/16/18 [History Confirmed 02/16/18 Last Taken Unknown] Insulin Glargine, Human [Lantus] 40 unit SQ DAILY 02/17/18 [History Confirmed Last Taken 02/16/18 09:00] Medical - DS: Hosp Hospital course: Mr. Medina is a 82 year old M Mr. Medina is a 82 year old M who presents with shortness of breath times 1 day. Patient states that her cough for a month productive of occasionally white sputum he was given an antibiotic early in the month which did not help. When he arrived on room air his sats were in the 70s. He states yesterday he noticed more shortness of breath. Typically becomes easily short of breath with any exertion but yesterday seem to be worse. Today while he is on the couch and noticed acute worsening and then some vitamin of the ED. He does not have any home oxygen to use inhalers for his COPD. He states that that his primary care doctor set up for him to get oxygen about 3 years ago but due to financial reasons he was not able to require home oxygen for the patient. He was given steroids and a breathing treatment after the breathing treatments as there is some improvement, is currently on oxygen mask 4 L. He denies any fevers. Denies any wheezing. Denies any chest pain. He did have the flu shot. Has not been around anybody has been sick currently smoke. No calf tenderness. In the ER he was felt to have exacerbation of COPD as well as a pneumonia developing showing on chest x-ray mild bibasilar infiltrates. Lactate was elevated as well as white blood cell count. ABG with CO2 within normal limits 02/17 Feeling better this morning has a persistent dry cough now. Feels like he can expand his lungs more. Breathing is improved. 02/18 Patient feeling better breathing a lot better has a very mild cough feels like he is back to baseline. His blood glucoses quite high because we did not have his home medications accurate. He takes Lantus 40 units daily. We will give him his Lantus as well as sliding scale and obtain better control his blood glucose and then likely discharge later today. Discharge diagnosis: Acute exacerbation COPD pneumonia hypoxic respiratory failure Secondary discharge diagnosis: Sepsis diabetes with hyperglycemia CAD hypertension hyponatremia - Time Spent with Patient Total time spent providing and/or coordinating discharge services: Greater than 30 minutes Medical - DS: Exam - Constitutional Vitals: Vital Signs Temp Pulse Pulse Resp BP BP BP 02/18/18 07:31 20 107/66 02/18/18 07:29 99.0 F 20 126/67 02/18/18 06:43 90 18 02/18/18 04:00 98.0 F 91 H 18 110/73 02/17/18 23:22 99.0 F 94 H 16 106/63 02/17/18 22:50 95 H 18 02/17/18 20:00 98.8 F 96 H 20 109/61 02/17/18 19:45 18 107/66 02/17/18 18:55 107 H 18 02/17/18 15:50 98.8 F 96 H 18 107/66 02/17/18 15:01 100 H 16 02/17/18 12:00 99.9 F H 100 H 18 100/70 02/17/18 11:14 97 H 16 Pulse Ox 02/18/18 07:31 02/18/18 07:29 92 02/18/18 06:43 96 02/18/18 04:00 92 02/17/18 23:22 92 02/17/18 22:50 02/17/18 20:00 95 02/17/18 19:45 02/17/18 18:55 02/17/18 15:50 93 02/17/18 15:01 02/17/18 12:00 92 02/17/18 11:14 Intake and Output 02/17/18 02/18/18 02/18/18 21:59 05:59 13:59 Intake Total 2640 / 2640 500 / 500 Output Total 700 / 700 700 / 700 650 / 650 Balance 1939 / 1939 -200 / -200 -650 / -650 Intake: IV 1000 / 1000 Sodium Chloride 0.9% 1,000 ml @ 1000 / 1000 100 mls/hr IV .Q10H [facility] Rx#: [id number] Oral 1640 / 1640 500 / 500 Output: Void Amount 700 / 700 700 / 700 650 / 650 Other: Meal Dinner Percent of Meal Consumed 100% Feeding Ability Independent # Voids 1 Weight 87.997 kg Medical - DS: Data Labs on day of discharge: Labs from last 24 hours 02/18/18 02/18/18 03:45 03:45 WBC 16.1 H RBC 4.19 L Hgb 12.8 L Hct 38.1 L MCV 90.8 MCH 30.4 MCHC 33.5 RDW 13.7 Plt Count 206 MPV 7.8 Gran % 94.6 H Lymph % (Auto) 3.5 L [place] % (Auto) 1.9 Eos % (Auto) 0 Baso % (Auto) 0 Gran # 15.3 H Lymph # (Auto) 0.6 L [place] # (Auto) 0.3 Eos # (Auto) 0 Baso # (Auto) 0 Sodium 135 Potassium 4.8 Chloride 99 Carbon Dioxide 23 Anion Gap 13.0 BUN 22 Creatinine 1.0 GFR Calculation 71 Glucose 329 H Uric Acid 4.6 Calcium 9.1 Phosphorus 3.2 Magnesium 2.4 Total Bilirubin 0.2 Direct Bilirubin < 0.2 GGT 14 AST 15 ALT 14 Alkaline Phosphatase 69 Lactate Dehydrogenase 225 Total Protein 6.1 Albumin 3.6 Globulin 2.5 Albumin/Globulin Ratio 1.4 Triglycerides 157 H Preliminary micro results at discharge 02/16/18 18:35 Blood Culture - Preliminary Blood 02/16/18 18:04 Blood Culture - Preliminary Blood Medical - DS: A/P - Patient/Caregiver Discharge Instructions Activity: increase activity as tolerated Diet: Consistent Carbohydrate Additional Instructions: recommend sleep study as soon as able. You are scheduled for a sleep study on March 03 at 7:30 PM at [facility] referral to see [employer] Pickup Driver 7-[address] Blair's office will contact you for an appointment. Prescriptions: Levofloxacin [Levaquin] 750 mg PO DAILY #5 tab predniSONE [Prednisone] 40 mg PO DAILY #1 tab - Follow up Plan Follow up with: Rita Euceda MD [Physician] - 02/25/18 2:30 pm (This is a one time post hospital follow up appointment.) Uli Blair MD [Physician] - (Dr. Blair's office will contact you at home to schedule an appointment.) Garry Villaseñor MD [Primary Care Provider] - Disposition: Home, Self-Care Prognosis: Fair Rehab Potential: Fair Overall status at discharge: patient is back to baseline Medical - DS: Qual - VTE Deep Vein Thrombosis/Pulmonary Embolism Present on Admission: No
[2018-02-18] MEDS ORDERED: IPRATROPIUM/ALBUTEROL 3 ML AMPUL.NEB NEB SCH (14:00)
[2018-02-18] MEDS ORDERED: methylPREDNISolone SOD SUCC 125 MG/2 ML VIAL IV SCH (21:00)
== END 2018-02-18 16:25 | disposition home or self-care (01) | DRG 871 ==
LOC: ED 17:40 → ICU 20:53
PROVIDERS: ADMIT Internal Medicine; ATTEND Internal Medicine
CPT/HCPCS: 84145; 87632; 94761; 99223; 99231; J0456; J0696; J1650; J1815; J1817; J1956; J2930; J7030; J7060; J7620; J7620-GY; Q9967